=== PATIENT | female | born 1980 | race Caucasian/White ===

== ENCOUNTER → 2016-10-07 | Outpatient (REF) ==
[~2016-10-07] MED LIST: CIPR-249 PO; DEPA250T32 PO; PAXI20TA3 PO; PYRI1TAB5 PO; TRAZ100T2 PO; no meds
== END ==
LOC: M LAB 08:29
PROVIDERS: ATTEND Nurse Practitioner Adult Health
DX: Z02.89 Encounter for other administrative examinations (principal)

== ENCOUNTER 2016-12-16 09:38 | Emergency (ER) | payer OTHER ==
[~2016-12-16] VITALS: Ht 149.9 cm; Wt 76.3 kg
[~2016-12-16 09:38] MED LIST changes: -CIPR-249 PO; -PYRI1TAB5 PO
[2016-12-16] MEDS ORDERED: ONDANSETRON 4 MG ORAL DISINTEGRATING TAB (S0181) PO ONE (10:00)
[2016-12-16] MEDS ORDERED: NORCO, ANEXSIA 5/325MG TABLET (HYDROcodone/ACETAMINOPHEN) PO ONE (10:00)
[2016-12-16] MEDS ORDERED: PHENAZOPYRIDINE 100 MG TAB PO ONE (10:00)
[2016-12-16] MEDS ORDERED: PYRI1TAB5 PO (10:33)
[2016-12-16] MEDS ORDERED: CIPR-249 PO (10:33)
[2016-12-16 10:42] VITALS: BP 132/70
[2016-12-16] MEDS ORDERED: CIPROFLOXACIN 500 MG TAB PO ONE (10:45)
== END 2016-12-16 10:45 | disposition home or self-care (01) ==
LOC: M ED 09:38
DX: N30.90 Cystitis, unspecified without hematuria (principal); J06.9 Acute upper respiratory infection, unspecified; Z88.8 Allergy status to other drugs, medicaments and biological substances; Z91.018 Allergy to other foods

== ENCOUNTER 2017-03-04 11:42 | Emergency (ER) | payer OTHER ==
[~2017-03-04] VITALS: Ht 149.9 cm; Wt 76.0 kg
[~2017-03-04 11:42] MED LIST changes: +CIPR-249 PO; +PYRI1TAB5 PO
[2017-03-04] MEDS ORDERED: IBUP-1022 PO (11:58)
[2017-03-04] MEDS ORDERED: MECLIZINE 25 MG TABLET PO ONE (13:15)
[2017-03-04] MEDS ORDERED: NS 1,000 ML IV ONE (13:15)
[2017-03-04 14:08] LABS: BASO % 0.3 % (0.0-1.0); EOS # 0.2 10^3/uL (0.0-0.50); EOS % 1.7 % (0.0-3.0); IMMATURE GRANULOCYTE % 0.3 % (0-0); LYMPH # 1.4 10^3/uL (1.5-4.5); LYMPH % 13.9 % (24.0-44.0); MEAN CORPUSCULAR HEMOGLOBIN 28.9 pg (27.0-33.0); MEAN CORPUSCULAR HGB CONC 32.8 g/dl (32.0-36.5); MEAN CORPUSCULAR VOLUME 88.2 fl (80.0-96.0); MONO # 0.7 10^3/uL (0.0-0.8); MONO % 6.7 % (0.0-5.0); NEUTROPHILS # 7.6 10^3/uL (1.8-7.7); NEUTROPHILS % 77.1 % (36.0-66.0); PLATELET COUNT, AUTOMATED 352 10^3/uL (150-450); RED CELL DISTRIBUTION WIDTH 12.8 % (11.5-14.5); WHITE BLOOD COUNT 9.9 10^3/uL (4.0-10.0)
[2017-03-04 14:23] LABS: CONTROL LINE HCG INT CTR LINE PRESENT
[2017-03-04 14:26] LABS: ANION GAP 4 MEQ/L (8-16); BLOOD UREA NITROGEN 9 MG/DL (7-18); CALCIUM LEVEL 8.6 MG/DL (8.5-10.1); CARBON DIOXIDE LEVEL 29 MEQ/L (21-32); CHLORIDE LEVEL 107 MEQ/L (98-107); CREATININE FOR GFR 0.44 MG/DL (0.55-1.02); GLOMERULAR FILTRATION RATE > 60.0 (>60); GLUCOSE, FASTING 92 MG/DL (70-105); POTASSIUM SERUM 3.7 MEQ/L (3.5-5.1); SODIUM LEVEL 140 MEQ/L (136-145)
--- NOTE | 2017-03-04 14:45 | REP ---
Clinical: Headache and vertigo . Comparison: 01/26/2015 . Findings: The ventricles, sulci, and cisterns are normal in position and appearance. Gee-white differentiation is maintained. No acute intracranial hemorrhage, mass/mass effect, pathology or trauma/injury. No evidence for acute infarction. No extra-axial fluid collection. Calvarium is intact. Paranasal sinuses and mastoid air cells are clear. Impression: Normal noncontrast head CT. No evidence for acute intracranial pathology or trauma/injury. Signed by Farhan Ng MD 03/04/2017 02:37 P
--- NOTE | 2017-03-04 14:56 | REP ---
Clinical: Near syncope . Comparison: 01/26/2015 . Findings: The mediastinum and cardiac silhouette are stable and within normal limits for portable technique. The lung joe are clear without acute consolidation, effusion, or pneumothorax. Skeletal structures are stable with chronic scoliosis again noted. Impression: No acute cardiopulmonary process appreciated. Signed by Farhan Ng MD 03/04/2017 02:47 P
[2017-03-04] MEDS ORDERED: MECL-68 PO (15:15)
[2017-03-04 15:19] VITALS: BP 111/64
--- NOTE | 2017-03-06 08:32 | ECGEPIP ---
Stationary ECG Study [facility] - ED Test Date: 2017-03-04 Pat Name: MAHIN LANE Department: Room: - Gender: F Communications Advisor: flores : 1980 Requested By: LARRY Ly Order Number: [id number] Reading MD: Diogo Swanson Measurements Intervals Truman Rate: 63 P: 32 ND: 154 QRS: 11 QRSD: 85 T: 23 QT: 416 QTc: 428 Interpretive Statements SINUS RHYTHM BENIGN EARLY REPOLARIZATION SIMILAR TO 01/26/15 Electronically Signed On 03-06-2017 8:31:38 EST by Diogo Swanson
== END 2017-03-04 15:51 | disposition home or self-care (01) ==
LOC: M ED 11:42
DX: R42 Dizziness and giddiness (principal); F31.9 Bipolar disorder, unspecified; Z79.899 Other long term (current) drug therapy; Z91.018 Allergy to other foods

== ENCOUNTER 2017-09-13 20:14 | Inpatient (IN) | payer OTHER ==
[2017-09-13] MEDS ORDERED: NS 1,000 ML IV (22:00)
[2017-09-13] MEDS: MORPHINE 4 MG/ML 1ML VIAL/SYRINGE (J2270) IV (22:15)
[2017-09-13] MEDS: ONDANSETRON 4MG/2ML VIAL (J2405) IV (22:15)
[2017-09-13] MEDS: FAMOTIDINE IV BAG 20 MG in APPROPRIATE DILUENT 1 EA IV (22:20)
[2017-09-13] MEDS: diphenhydrAMINE INJ 50MG/ML VIAL (J1200) IV (22:20)
[2017-09-13] MEDS: NS 1,000 ML IV (22:20)
[2017-09-13 22:31] LABS: HEMATOCRIT 39.5 % (36.0-47.0); MEAN CORPUSCULAR HEMOGLOBIN 28.7 pg (27.0-33.0); MEAN CORPUSCULAR HGB CONC 32.9 g/dl (32.0-36.5); MEAN CORPUSCULAR VOLUME 87.2 fl (80.0-96.0); PLATELET COUNT, AUTOMATED 350 10^3/uL (150-450); RED BLOOD COUNT 4.53 10^6/uL (4.00-5.40); RED CELL DISTRIBUTION WIDTH 13.2 % (11.5-14.5); WHITE BLOOD COUNT 13.5 10^3/uL (4.0-10.0)
[2017-09-13 22:49] LABS: ANION GAP 6 MEQ/L (8-16); BLOOD UREA NITROGEN 8 MG/DL (7-18); CALCIUM LEVEL 8.7 MG/DL (8.5-10.1); CARBON DIOXIDE LEVEL 28 MEQ/L (21-32); CHLORIDE LEVEL 106 MEQ/L (98-107); CREATININE FOR GFR 0.53 MG/DL (0.55-1.30); GLOMERULAR FILTRATION RATE > 60.0 (>60); GLUCOSE, FASTING 97 MG/DL (70-100); POTASSIUM SERUM 3.4 MEQ/L (3.5-5.1); SODIUM LEVEL 140 MEQ/L (136-145)
[2017-09-13] MEDS: methylPREDNISolone 500 MG, VIAL MATE ADAPTER 1 EACH in D5W 250 ML IV (23:08)
[2017-09-13 23:11] LABS: LACTIC ACID SEPSIS PROTOCOL 0.9 MMOL/L (0.4-2.0)
[2017-09-13] MEDS ORDERED: ISOVUE-370 76% 100ML VIAL (Q9967) As Ordered (23:17)
[2017-09-14] MEDS: AMPICILLIN SOD/SULBACTAM SOD 3 GM in D5W MINI-BAG PLUS 100 ML IV ×4 (00:39→20:49)
[2017-09-14] MEDS: NS 1,000 ML IV ×3 (00:51→13:36)
[2017-09-14 07:27] LABS: BASO % 0.2 % (0.0-1.0); HEMATOCRIT 36.2 % (36.0-47.0); HEMOGLOBIN 11.6 g/dl (12.0-15.5); IMMATURE GRANULOCYTE % 0.7 % (0-3.0); LYMPH # 1.1 10^3/uL (1.5-4.5); LYMPH % 10.2 % (24.0-44.0); MEAN CORPUSCULAR HEMOGLOBIN 28.4 pg (27.0-33.0); MEAN CORPUSCULAR VOLUME 88.5 fl (80.0-96.0); MONO # 0.2 10^3/uL (0.0-0.8); MONO % 1.9 % (0.0-5.0); NEUTROPHILS # 9.4 10^3/uL (1.8-7.7); PLATELET COUNT, AUTOMATED 328 10^3/uL (150-450); RED BLOOD COUNT 4.09 10^6/uL (4.00-5.40); RED CELL DISTRIBUTION WIDTH 13.3 % (11.5-14.5); WHITE BLOOD COUNT 10.8 10^3/uL (4.0-10.0)
[2017-09-14 07:45] LABS: INR 1.07
[2017-09-14 08:08] LABS: ANION GAP 7 MEQ/L (8-16); BLOOD UREA NITROGEN 9 MG/DL (7-18); CALCIUM LEVEL 8.3 MG/DL (8.5-10.1); CARBON DIOXIDE LEVEL 27 MEQ/L (21-32); CHLORIDE LEVEL 108 MEQ/L (98-107); CREATININE FOR GFR 0.48 MG/DL (0.55-1.30); GLOMERULAR FILTRATION RATE > 60.0 (>60); GLUCOSE, FASTING 153 MG/DL (70-100); POTASSIUM SERUM 3.6 MEQ/L (3.5-5.1); SODIUM LEVEL 142 MEQ/L (136-145)
[2017-09-14] MEDS: methylPREDNISolone INJ 125 MG/2 ML VIAL (J2930) IV (12:05)
[2017-09-14] MEDS: HEPARIN SOD (PORCINE) 5000 UNITS/ML VIAL SQ ×2 (14:23→20:49)
[2017-09-14] MEDS: CHLORHEXIDINE ORAL RINSE 0.12%/15ML 120ML BOTTLE MT ×2 (14:49→20:49)
[2017-09-15] MEDS: AMPICILLIN SOD/SULBACTAM SOD 3 GM in D5W MINI-BAG PLUS 100 ML IV ×4 (02:31→20:29)
[2017-09-15 07:39] LABS: HEMATOCRIT 30.6 % (36.0-47.0); HEMOGLOBIN 9.9 g/dl (12.0-15.5); MEAN CORPUSCULAR HEMOGLOBIN 28.6 pg (27.0-33.0); MEAN CORPUSCULAR HGB CONC 32.4 g/dl (32.0-36.5); MEAN CORPUSCULAR VOLUME 88.4 fl (80.0-96.0); PLATELET COUNT, AUTOMATED 285 10^3/uL (150-450); RED BLOOD COUNT 3.46 10^6/uL (4.00-5.40); RED CELL DISTRIBUTION WIDTH 13.5 % (11.5-14.5); WHITE BLOOD COUNT 13.1 10^3/uL (4.0-10.0)
[2017-09-15] MEDS ORDERED: ISOVUE-370 76% 100ML VIAL (Q9967) As Ordered (07:51)
[2017-09-15 08:07] LABS: ANION GAP 5 MEQ/L (8-16); BLOOD UREA NITROGEN 13 MG/DL (7-18); C REACTIVE PROTEIN QUANTITATIV 2.79 MG/DL (0.00-0.30); CALCIUM LEVEL 8.2 MG/DL (8.5-10.1); CARBON DIOXIDE LEVEL 26 MEQ/L (21-32); CHLORIDE LEVEL 113 MEQ/L (98-107); CREATININE FOR GFR 0.42 MG/DL (0.55-1.30); GLOMERULAR FILTRATION RATE > 60.0 (>60); GLUCOSE, FASTING 114 MG/DL (70-100); MAGNESIUM LEVEL 1.9 MG/DL (1.8-2.4); POTASSIUM SERUM 3.7 MEQ/L (3.5-5.1); SODIUM LEVEL 144 MEQ/L (136-145)
[2017-09-15 09:45] LABS: CK-MB VALUE MASS 1.3 NG/ML (<3.6); CPK CREATINE PHOSPHOKINASE 27 U/L (26-192); MB/CK RELATIVE INDEX 4.81 (< OR =4)
[2017-09-15] MEDS: HEPARIN SOD (PORCINE) 5000 UNITS/ML VIAL SQ ×2 (09:52→20:30)
[2017-09-15] MEDS: CHLORHEXIDINE ORAL RINSE 0.12%/15ML 120ML BOTTLE MT ×2 (09:53→20:29)
[2017-09-15] MEDS: NS 1,000 ML IV ×2 (10:33→20:42)
[2017-09-15 11:33] LABS: ESTIMATED AVERAGE GLUCOSE 105 MG/DL (60-110); HEMOGLOBIN A1c 5.3 %
[2017-09-15] MEDS: ACETAMINOPHEN TAB 650MG DOSE (2X325MG) PO ×2 (11:34→20:42)
[2017-09-15 14:31] LABS: CK-MB VALUE MASS 1.6 NG/ML (<3.6); CPK CREATINE PHOSPHOKINASE 31 U/L (26-192); MB/CK RELATIVE INDEX 5.16 (< OR =4); TROPONIN I < 0.02 NG/ML (< 0.10)
[2017-09-16] MEDS: AMPICILLIN SOD/SULBACTAM SOD 3 GM in D5W MINI-BAG PLUS 100 ML IV ×3 (02:34→13:50)
[2017-09-16] MEDS: NS 1,000 ML IV (07:04)
[2017-09-16 07:41] LABS: HEMATOCRIT 31.6 % (36.0-47.0); MEAN CORPUSCULAR HEMOGLOBIN 28.4 pg (27.0-33.0); MEAN CORPUSCULAR HGB CONC 31.6 g/dl (32.0-36.5); MEAN CORPUSCULAR VOLUME 89.8 fl (80.0-96.0); PLATELET COUNT, AUTOMATED 282 10^3/uL (150-450); RED BLOOD COUNT 3.52 10^6/uL (4.00-5.40); RED CELL DISTRIBUTION WIDTH 13.5 % (11.5-14.5); WHITE BLOOD COUNT 6.3 10^3/uL (4.0-10.0)
[2017-09-16 07:53] LABS: ANION GAP 3 MEQ/L (8-16); BLOOD UREA NITROGEN 11 MG/DL (7-18); C REACTIVE PROTEIN QUANTITATIV 1.19 MG/DL (0.00-0.30); CALCIUM LEVEL 7.4 MG/DL (8.5-10.1); CARBON DIOXIDE LEVEL 30 MEQ/L (21-32); CHLORIDE LEVEL 110 MEQ/L (98-107); CREATININE FOR GFR 0.42 MG/DL (0.55-1.30); GLOMERULAR FILTRATION RATE > 60.0 (>60); GLUCOSE, FASTING 82 MG/DL (70-100); MAGNESIUM LEVEL 1.5 MG/DL (1.8-2.4); POTASSIUM SERUM 3.1 MEQ/L (3.5-5.1); SODIUM LEVEL 143 MEQ/L (136-145)
[2017-09-16] MEDS: CHLORHEXIDINE ORAL RINSE 0.12%/15ML 120ML BOTTLE MT (08:36)
[2017-09-16] MEDS: HEPARIN SOD (PORCINE) 5000 UNITS/ML VIAL SQ (08:37)
[2017-09-16] MEDS: POTASSIUM CHLORIDE 10 MEQ SR TABLET PO ×2 (11:18→15:22)
[2017-09-16] MEDS: MAG SULF 1GM/100ML (MAG RUN) 1 GM in APPROPRIATE DILUENT 1 EA IV (11:19)
== END 2017-09-16 15:38 | disposition home or self-care (01) | DRG 153 ==
LOC: M ED INP 09-14 00:51 → M MSPAV 09-15 12:30 → M PED 09-15 12:40 → M ED 20:14 → M PED 09-14 03:10
DX: J39.1 Other abscess of pharynx (principal); K12.2 Cellulitis and abscess of mouth; F31.9 Bipolar disorder, unspecified; R59.0 Localized enlarged lymph nodes; R73.9 Hyperglycemia, unspecified; J03.91 Acute recurrent tonsillitis, unspecified; T38.0X5A Adverse effect of glucocorticoids and synthetic analogues, initial encounter

== ENCOUNTER → 2017-09-27 | Outpatient (REF) | payer OTHER ==
[2017-09-27 17:46] LABS: FERRITIN 46 NG/ML (8-252); IRON (FE) 63 UG/DL (50-170); PERCENT SATURATION 20.5 % (13.2-45.0); TOTAL IRON BINDING CAPACITY 307 UG/DL (250-450)
[2017-09-27 17:51] LABS: VITAMIN B12 LEVEL 406 PG/ML (247-911)
[2017-09-27 17:52] LABS: FOLATE 9.8 NG/ML (>5.4)
== END ==
LOC: M SFHCLERA 12:17
DX: D64.9 Anemia, unspecified (principal)

== ENCOUNTER 2017-10-05 23:13 | Emergency (ER) | payer OTHER ==
[2017-10-05] MEDS: NORCO 5/325MG TABLET (BULK FOR ED) PO (23:39)
[2017-10-05] MEDS: CLINDAMYCIN 150 MG CAP PO (23:39)
== END 2017-10-05 23:51 | disposition home or self-care (01) ==
LOC: M ED 23:13
DX: K04.7 Periapical abscess without sinus (principal); R68.84 Jaw pain; K08.89 Other specified disorders of teeth and supporting structures; Z79.899 Other long term (current) drug therapy; Z88.8 Allergy status to other drugs, medicaments and biological substances; Z91.018 Allergy to other foods
CPT/HCPCS: 99283

== ENCOUNTER 2017-10-09 23:10 | Emergency (ER) | payer OTHER ==
[2017-10-10] MEDS ORDERED: LIDOCAINE W/EPINEPHRINE 1% 20ML VIAL As Ordered (00:27)
[2017-10-10] MEDS: LIDOCAINE W/EPINEPHRINE 1% 20ML VIAL SC (00:30)
[2017-10-10] MEDS: NORCO 5/325MG TABLET (BULK FOR ED) PO (01:00)
== END 2017-10-10 01:04 | disposition home or self-care (01) ==
LOC: M ED 23:10
DX: K08.89 Other specified disorders of teeth and supporting structures (principal); Z79.899 Other long term (current) drug therapy; Z88.8 Allergy status to other drugs, medicaments and biological substances; Z91.018 Allergy to other foods
CPT/HCPCS: 99283

== ENCOUNTER 2018-06-28 18:17 | Emergency (ER) | payer MEDICAID, OTHER ==
[~2018-06-28] VITALS: Ht 149.9 cm; Wt 81.3 kg
[2018-06-28 18:17] VITALS: BP 137/63
[~2018-06-28 18:17] MED LIST changes: +ACET1TAB16 PO; +ACET30TAB PO; +ANBE20GE TOP; +AUGM875T28 PO; +CLEO300C2 PO; +ESCI10TA2 PO; +IBUP-1022 PO; +IBUP1TAB7 PO; +MECL-68 PO; +NORCOTAB PO; +OMEP40CA2 PO; +PENI250T57 PO; +PERI12LIQ MT; +[UNRECOGNIZED DRUG - OTHER] SSP
[2018-06-28] MEDS ORDERED: ALEV220C2 PO (18:23)
[2018-06-28] MEDS ORDERED: ACET30TAB PO (20:38)
[2018-06-28] MEDS ORDERED: KETO10TAB PO (20:38)
[2018-06-28] MEDS ORDERED: CLEO300C2 PO (20:38)
[2018-06-28] MEDS ORDERED: KETOROLAC TROMETHAMINE 10 MG TAB PO ONE (20:45)
[2018-06-28] MEDS ORDERED: CLINDAMYCIN 150 MG CAP PO ONE (20:45)
[2018-06-28] MEDS ORDERED: ACETAMINOPH W/CODEINE #3 TAB UD PO ONE (20:45)
== END 2018-06-28 20:52 | disposition home or self-care (01) ==
LOC: M ED 18:17
DX: L03.113 Cellulitis of right upper limb (principal); L81.8 Other specified disorders of pigmentation; Z88.8 Allergy status to other drugs, medicaments and biological substances; Z88.1 Allergy status to other antibiotic agents; Z91.018 Allergy to other foods

== ENCOUNTER 2018-08-06 07:07 | Emergency (ER) | payer OTHER ==
[~2018-08-06] VITALS: Ht 149.9 cm; Wt 78.2 kg
[~2018-08-06 07:07] MED LIST changes: +ACET-716 PO; -ACET30TAB PO; +ALEV220C2 PO; +HYDR-3715 PO; +KETO10TAB PO; -NORCOTAB PO
[2018-08-06] MEDS ORDERED: CYCLOBENZAPRINE 10 MG TAB PO ONE (07:30)
[2018-08-06] MEDS ORDERED: KETOROLAC 60 MG/2 ML VIAL (J1885) IM ONE (07:30)
[2018-08-06] MEDS ORDERED: methylPREDNISolone INJ 125 MG/2 ML VIAL (J2930) IM ONE (07:30)
[2018-08-06] MEDS ORDERED: PERCOCET 5MG/325MG TAB PO ONE (08:15)
[2018-08-06] MEDS ORDERED: NAPR500T6 PO (08:54)
[2018-08-06] MEDS ORDERED: PRED20TA PO (08:54)
[2018-08-06] MEDS ORDERED: ROBA500T PO (08:54)
[2018-08-06 09:09] VITALS: BP 101/59
== END 2018-08-06 09:15 | disposition home or self-care (01) ==
LOC: M ED 07:07
DX: M54.30 Sciatica, unspecified side (principal); F32.9 Major depressive disorder, single episode, unspecified; Z91.018 Allergy to other foods; Z88.6 Allergy status to analgesic agent; Z88.1 Allergy status to other antibiotic agents
CPT/HCPCS: 96372; 99283; J1885; J2930

== ENCOUNTER → 2018-08-10 | Outpatient (CLI) | payer OTHER, MEDICAID ==
[~2018-08-10] MED LIST changes: +NAPR500T6 PO; +PRED20TA PO; +ROBA500T PO
--- NOTE | 2018-08-10 15:46 | REP ---
LUMBAR SPINE, SIX VIEWS: HISTORY: Back pain. There is no acute fracture or subluxation. The L3-4 and L4-5 intervertebral discs are decreased in height consistent with disc degeneration. The facet joints are normal in appearance. There is scoliosis of the thoracolumbar spine convex to the left. IMPRESSION: Degenerative change as described above. Electronically Signed by Ruslan Knox MD 08/10/2018 03:51 P
== END ==
LOC: M LRY 14:06
PROVIDERS: ATTEND Nurse Practitioner Family
DX: M51.36 Other intervertebral disc degeneration, lumbar region (principal)

== ENCOUNTER → 2018-08-10 | Outpatient (REF) | payer OTHER, MEDICAID ==
[2018-08-10 18:21] LABS: BASO % 0.4 % (0.0-1.0); EOS # 0.4 10^3/uL (0.0-0.50); EOS % 3.9 % (0.0-3.0); HEMATOCRIT 41.3 % (36.0-47.0); LYMPH # 3.5 10^3/uL (1.5-4.5); LYMPH % 35.9 % (24.0-44.0); MEAN CORPUSCULAR HEMOGLOBIN 27.9 pg (27.0-33.0); MEAN CORPUSCULAR HGB CONC 31.5 g/dl (32.0-36.5); MEAN CORPUSCULAR VOLUME 88.6 fl (80.0-96.0); MONO # 0.8 10^3/uL (0.0-0.8); MONO % 8.1 % (0.0-5.0); NEUTROPHILS % 51.4 % (36.0-66.0); PLATELET COUNT, AUTOMATED 386 10^3/uL (150-450); RED BLOOD COUNT 4.66 10^6/uL (4.00-5.40); WHITE BLOOD COUNT 9.8 10^3/uL (4.0-10.0)
[2018-08-10 18:34] LABS: ALBUMIN 3.6 GM/DL (3.2-5.2); ALT/SGPT 34 U/L (12-78); BILIRUBIN,TOTAL 0.6 MG/DL (0.2-1.0); BLOOD UREA NITROGEN 12 MG/DL (7-18); CALCIUM LEVEL 8.4 MG/DL (8.5-10.1); CARBON DIOXIDE LEVEL 27 MEQ/L (21-32); CHLORIDE LEVEL 107 MEQ/L (98-107); CHOLESTEROL LEVEL 143 MG/DL (<200); CHOLESTEROL RISK RATIO 4.085 (<5); CREATININE FOR GFR 0.51 MG/DL (0.55-1.30); GLOMERULAR FILTRATION RATE > 60.0 (>60); GLUCOSE, FASTING 94 MG/DL (70-100); HDL CHOLESTEROL 35 MG/DL (>40); LDL CHOLESTEROL 74 MG/DL (<100); NON-HDL-C 108 MG/DL; POTASSIUM SERUM 3.8 MEQ/L (3.5-5.1); SODIUM LEVEL 139 MEQ/L (136-145); THYROID STIMULATING HORMONE 0.851 uIU/ML (0.358-3.740); TOTAL PROTEIN 7.3 GM/DL (6.4-8.2); TRIGLYCERIDES LEVEL 169 MG/DL (<150)
== END ==
LOC: M SFHCLERA 14:01
PROVIDERS: ATTEND Nurse Practitioner Family
DX: Z13.220 Encounter for screening for lipoid disorders (principal); R53.82 Chronic fatigue, unspecified

== ENCOUNTER → 2018-09-14 | Outpatient (CLI) | payer OTHER ==
--- NOTE | 2018-09-17 18:13 | SLEEPHOME ---
DATE OF PROCEDURE: 09/14/2018 ORDERED BY: HANS Ledezma Diagnostic home sleep testing was performed due to concern for the obstructive sleep apnea syndrome. For testing a nocturnal T3 respiratory monitoring device was used. Continuous record was made of pulse, oxygen saturation, airflow, chest, abdominal strain and body position. 10 hours and 59 minutes of data were reviewed. There were 5 hours and 58 minutes marked as time in bed. During the interval marked time in bed, there were 37 respiratory events identified of 10 seconds in duration or greater for a respiratory event index of 6.2. The events were primarily obstructive, not exclusive to specific posture. Baseline pulse rate 65 beats per minute, pulse rate ranged 34-100. Baseline saturation 93%, saturations fell to 75% with an oxygen desaturation index of 5.9. Testing was performed in both the supine and nonsupine positions. IMPRESSION: Abnormal home sleep testing with repetitive respiratory events and oxygen desaturations to 75% with a respiratory event index of 6.2 is consistent with the obstructive sleep apnea syndrome. RECOMMENDATIONS: The patient should be encouraged to undergo a formal sleep evaluation and in laboratory pressure titration.
== END ==
LOC: M SLEEP HO 09:13
PROVIDERS: ATTEND Nurse Practitioner Family
DX: R06.83 Snoring (principal)

== ENCOUNTER 2018-12-15 07:51 | Inpatient (IN) | payer MEDICAID, OTHER ==
[~2018-12-15] VITALS: Ht 147.3 cm; Wt 84.0 kg
[~2018-12-15 07:51] MED LIST changes: -MECL-68 PO; +MECL1TAB31 PO; -OMEP40CA2 PO; +OMEP40CA97 PO
[2018-12-15] MEDS ORDERED: NAPR-885 PO (07:57)
[2018-12-15] MEDS ORDERED: PENI500T PO (07:57)
[2018-12-15] MEDS ORDERED: AMPICILLIN SOD/SULBACTAM SOD 3 GM in D5W MINI-BAG PLUS 100 ML IV ONE (08:15)
[2018-12-15] MEDS ORDERED: KETOROLAC 30 MG/ML VIAL (J1885) IV ONE (08:15)
[2018-12-15 08:42] LABS: BASO % 0.3 % (0.0-1.0); EOS # 0.1 10^3/uL (0.0-0.5); HEMATOCRIT 37.5 % (36.0-47.0); HEMOGLOBIN 12.2 g/dl (12.0-15.5); LYMPH # 1.9 10^3/uL (1.5-5.0); LYMPH % 19.1 % (24.0-44.0); MEAN CORPUSCULAR HEMOGLOBIN 29.3 pg (27.0-33.0); MEAN CORPUSCULAR HGB CONC 32.5 g/dl (32.0-36.5); MEAN CORPUSCULAR VOLUME 90.1 fl (80.0-96.0); MONO # 1.2 10^3/uL (0.0-0.8); MONO % 11.8 % (0.0-5.0); NEUTROPHILS # 6.7 10^3/uL (1.5-8.5); NEUTROPHILS % 67.5 % (36.0-66.0); PLATELET COUNT, AUTOMATED 284 10^3/uL (150-450); RED BLOOD COUNT 4.16 10^6/uL (4.00-5.40); WHITE BLOOD COUNT 9.9 10^3/uL (4.0-10.0)
[2018-12-15] MEDS ORDERED: ISOVUE-370 76% 100ML VIAL (Q9967) As Ordered ONE (08:59)
[2018-12-15 09:27] LABS: ERYTHROCYTE SEDIMENTATION RATE 30 mm/hr (0-20)
--- NOTE | 2018-12-15 09:39 | REP ---
Clinical: Facial swelling. Technique: Axial contrast enhanced images from the skull base to the thoracic inlet with coronal and sagittal re-formations using 100 ml Isovue 370 intravenous contrast material. Findings: Extensive right-sided facial swelling extending from approximately the level of the zygomatic arch to the submandibular region with significant inflammatory stranding and phlegmonous changes primarily overlying the mandible. There is partial opacification to the ethmoid and maxillary sinuses suggesting the possibility of associated sinusitis. The bilateral orbits including globes and intraconal contents as well as the oral pharyngeal, parapharyngeal, retropharyngeal soft tissues and spaces appear relatively normal. The airway remains patent and midline. The bilateral parotid, submandibular and submental glands appear relatively symmetric and normal. Mild right-sided cervical and jugular chain adenopathy noted. Vasculature is symmetric and normal. The osseous structures are intact and without obvious osseous pathology. Impression: 1. Extensive right-sided facial swelling primarily overlying the maxilla and mandible with significant inflammatory stranding and phlegmonous changes. Forming abscess cannot be excluded and may warrant followup. Findings remain relatively superficial and no parapharyngeal/retropharyngeal or oral pharyngeal mass/mass effect, gauge swelling or process is appreciated. Electronically Signed by Farhan Ng MD 12/15/2018 09:31 A
[2018-12-15] MEDS ORDERED: MCTOIL PO (10:50)
[2018-12-15] MEDS ORDERED: CVS1CAP2 PO (10:50)
[2018-12-15] MEDS ORDERED: MULTCAP PO (10:50)
[2018-12-15] MEDS: NS 1,000 ML IV SCH (11:36)
--- NOTE | 2018-12-15 12:25 | REP ---
Clinical: Facial swelling. Technique: Two Panorex views. Findings: Mandible, osseous structures, and dentition appear relatively normal and without obvious acute process. There is a lucency surrounding the root of the presumed lower right second pre molar tooth. No associated extension through the mandible is appreciated. Impression: As above. Electronically Signed by Farhan Ng MD 12/15/2018 12:17 P
[2018-12-15 13:05] VITALS: BP 140/65
[2018-12-15] MEDS ORDERED: MORPHINE 4 MG/ML 1ML VIAL/SYRINGE (J2270) IV ONE (13:45)
[2018-12-15] MEDS ORDERED: NALOXONE INJ 0.4 MG/1 ML VIAL (J2310) IV PRN (13:45)
[2018-12-15] MEDS ORDERED: oxyCODONE 10 MG CR TAB PO ONE (14:30)
[2018-12-15] MEDS: AMPICILLIN SOD/SULBACTAM SOD 3 GM in D5W MINI-BAG PLUS 100 ML IV SCH ×2 (15:02→21:14)
[2018-12-15] MEDS: KETOROLAC 30 MG/ML VIAL (J1885) IV SCH ×2 (15:02→21:13)
[2018-12-15] MEDS: oxyCODONE 5MG TAB PO PRN ×2 (15:14→21:14)
[2018-12-15] MEDS: CHLORHEXIDINE GLUCONATE 0.12 % 15ML UDC (PERIDEX ORAL RINSE) MT SCH ×2 (16:34→21:13)
[2018-12-15] MEDS ORDERED: oxyCODONE 5MG TAB PO ONE (17:00)
[2018-12-15] MEDS ORDERED: ACETAMINOPHEN 500 MG TAB PO ONE (17:00)
[2018-12-15] MEDS: ONDANSETRON 4MG/2ML VIAL (J2405) IV PRN (18:40)
[2018-12-15 20:00] VITALS: BP 99/53; O2SAT 97
[2018-12-15 21:00] VITALS: O2SAT 97
[2018-12-15] MEDS ORDERED: oxyCODONE 10 MG CR TAB PO SCH (21:00)
[2018-12-15 22:00] VITALS: O2SAT 95
[2018-12-15 23:00] VITALS: O2SAT 92
[2018-12-16] VITALS (15 sets, daily range): BP systolic 98–121; BP diastolic 52–83; O2SAT 93–98
[2018-12-16] MEDS: NS 1,000 ML IV SCH ×2 (01:09→13:47)
[2018-12-16] MEDS: ONDANSETRON 4MG/2ML VIAL (J2405) IV PRN (01:09)
[2018-12-16] MEDS: KETOROLAC 30 MG/ML VIAL (J1885) IV SCH ×4 (03:53→20:25)
[2018-12-16] MEDS: oxyCODONE 5MG TAB PO PRN ×3 (03:54→17:49)
[2018-12-16] MEDS: AMPICILLIN SOD/SULBACTAM SOD 3 GM in D5W MINI-BAG PLUS 100 ML IV SCH ×4 (03:54→20:26)
[2018-12-16 06:48] LABS: BASO % 0.3 % (0.0-1.0); EOS # 0.3 10^3/uL (0.0-0.5); EOS % 2.9 % (0.0-3.0); HEMATOCRIT 36.8 % (36.0-47.0); HEMOGLOBIN 11.8 g/dl (12.0-15.5); LYMPH # 2.7 10^3/uL (1.5-5.0); LYMPH % 29.7 % (24.0-44.0); MEAN CORPUSCULAR HEMOGLOBIN 29.6 pg (27.0-33.0); MEAN CORPUSCULAR HGB CONC 32.1 g/dl (32.0-36.5); MEAN CORPUSCULAR VOLUME 92.5 fl (80.0-96.0); MONO # 0.9 10^3/uL (0.0-0.8); MONO % 10.3 % (0.0-5.0); NEUTROPHILS # 5.1 10^3/uL (1.5-8.5); NEUTROPHILS % 56.6 % (36.0-66.0); PLATELET COUNT, AUTOMATED 279 10^3/uL (150-450); RED BLOOD COUNT 3.98 10^6/uL (4.00-5.40); WHITE BLOOD COUNT 9.1 10^3/uL (4.0-10.0)
[2018-12-16 07:11] LABS: BLOOD UREA NITROGEN 7 MG/DL (7-18); CALCIUM LEVEL 7.9 MG/DL (8.5-10.1); CARBON DIOXIDE LEVEL 31 MEQ/L (21-32); CHLORIDE LEVEL 105 MEQ/L (98-107); CREATININE FOR GFR 0.48 MG/DL (0.55-1.30); GLOMERULAR FILTRATION RATE > 60.0 (>60); GLUCOSE, FASTING 84 MG/DL (70-100); POTASSIUM SERUM 3.6 MEQ/L (3.5-5.1); SODIUM LEVEL 142 MEQ/L (136-145)
[2018-12-16] MEDS ORDERED: MEPIVACAINE HCL 3 % 1.7 ML DENTAL CARTRIDGE (CARBOCAINE) (J0670) As Ordered ONE (07:46)
[2018-12-16] MEDS ORDERED: LIDOCAINE 2% W/ EPINEPHRINE 1.7 ML DENTAL INJ As Ordered ONE ×2 (07:47→07:48)
[2018-12-16] MEDS ORDERED: ROCURONIUM BROMIDE 50 MG/5 ML VIAL As Ordered ONE (08:41)
[2018-12-16] MEDS ORDERED: MIDAZOLAM INJ 2 MG/2 ML VIAL (J2250) As Ordered ONE (08:41)
[2018-12-16] MEDS ORDERED: PHENYLephrine HCL 500 MCG/5 ML (100MCG/ML) SYRINGE (J2370) As Ordered ONE (08:41)
[2018-12-16] MEDS ORDERED: fentaNYL 250 MCG/5 ML INJECTION (J3010) As Ordered ONE (08:41)
[2018-12-16] MEDS ORDERED: ONDANSETRON 4MG/2ML VIAL (J2405) As Ordered ONE (08:41)
[2018-12-16] MEDS ORDERED: LIDOCAINE 2% INJ 100 MG/5 ML SDV (FOR ANES.) As Ordered ONE (08:41)
[2018-12-16] MEDS ORDERED: propofoL 200 MG/20 ML VIAL As Ordered ONE (08:41)
[2018-12-16] MEDS ORDERED: dexameTHASONE 4 MG/ML 1ML VIAL (J1100) As Ordered ONE (08:41)
[2018-12-16] MEDS ORDERED: SUGAMMADEX SODIUM 500 MG/5 ML VIAL (BRIDION) As Ordered ONE (08:41)
[2018-12-16] MEDS: CHLORHEXIDINE GLUCONATE 0.12 % 15ML UDC (PERIDEX ORAL RINSE) MT SCH ×2 (09:00→20:26)
[2018-12-16] MEDS ORDERED: PERCOCET 5MG/325MG TAB PO PRN (09:45)
[2018-12-16] MEDS ORDERED: fentaNYL 100 MCG/2 ML INJECTION (J3010) IV PRN (09:45)
[2018-12-16] MEDS ORDERED: MEPERIDINE INJ 25 MG/ML VIAL (J2175) IV PRN (09:45)
[2018-12-16] MEDS ORDERED: METOCLOPRAMIDE INJ 10MG/2ML VIAL (J2765) IV PRN (09:45)
[2018-12-16] MEDS ORDERED: ONDANSETRON 4MG/2ML VIAL (J2405) IV PRN (09:45)
[2018-12-16] MEDS ORDERED: LR 1,000 ML IV SCH (09:45)
--- NOTE | 2018-12-16 15:57 | IPNPDOC ---
Date Seen The patient was seen on 12/16/18. Progress Note SUBJECTIVE: s/p 2 teeth extraction right premolar 8/10 pain on pain scale, afebrile no chills still with significant edema, tenderness right face. OBJECTIVE: PHYSICAL EXAMINATION: VITALS: pls see below HEENT: no respiratory distress or conversational dyspnea. trismus with difficulty opening her mouth with extensive right mandibular, facial edema tenderness with significant right cervical LAD. no stridor Lungs; CTAB AEBE no wheezing or rales Heart: S1S2 RRR Abd: S1S2 obese soft NT ND no HSM Ext: no edema, cyanosis, clubbing. LABORATORY DATA IMAGING STUDIES, MICROBIOLOGY; PLS SEE BELOW ASSESSMENT AND PLAN: 38 F presented with 2day h/o subjective fevers, chills, after cracking her premolar tooth, seen at urgent care given pcn with worsening tenderness swelling prompting her to come to the ER Right facial cellulitis due to teeth abscess s/p tooth extraction by OMFS Dr. Bhagat on liquid diet, ivfluids, iv toradol, iv unasyn Obesity BMI 38.7 at risk for hypercapnia due to opioid ALEJANDRINA protocol continuous pulse ox. disposition: pending clinical improvement . 2-3 days. VS, I&O, 24H, Fishbone Vital Signs/I&O Vital Signs Date Time Temp Pulse Resp B/P (MAP) Pulse Ox O2 Delivery O2 Flow Rate FiO2 12/16/18 13:46 85 17 121/65 (83) 96 1.0 12/16/18 10:42 97.8 12/16/18 07:50 Room Air I&O- Last 24 Hours up to 6 AM 12/16/18 06:00 Intake Total 2925 ml Output Total 1400 ml Balance 1525 ml Laboratory Data 24H LABS Laboratory Tests 2 12/16/18 06:35: Immature Granulocyte % (Auto) 0.2, White Blood Count 9.1, Red Blood Count 3.98L, Hemoglobin 11.8L, Hematocrit 36.8, Mean Corpuscular Volume 92.5, Mean Corpuscular Hemoglobin 29.6, Mean Corpuscular Hemoglobin Concent 32.1, Red Cell Distribution Width 14.4, Platelet Count 279, Neutrophils (%) (Auto) 56.6, Lymphocytes (%) (Auto) 29.7, Monocytes (%) (Auto) 10.3H, Eosinophils (%) (Auto) 2.9, Basophils (%) (Auto) 0.3, Neutrophils # (Auto) 5.1, Lymphocytes # (Auto) 2.7, Monocytes # (Auto) 0.9H, Eosinophils # (Auto) 0.3, Basophils # (Auto) 0.0, Nucleated Red Blood Cells % (auto) 0.0, Anion Gap 6L, Glomerular Filtration Rate > 60.0, Blood Urea Nitrogen 7, Creatinine 0.48L, Sodium Level 142, Potassium Level 3.6, Chloride Level 105, Carbon Dioxide Level 31, Calcium Level 7.9L CBC/BMP Laboratory Tests 12/16/18 06:35 Red Blood Count 3.98 L, Mean Corpuscular Volume 92.5, Mean Corpuscular Hemoglobin 29.6, Mean Corpuscular Hemoglobin Concent 32.1, Red Cell Distribution Width 14.4, Neutrophils (%) (Auto) 56.6, Lymphocytes (%) (Auto) 29.7, Monocytes (%) (Auto) 10.3 H, Eosinophils (%) (Auto) 2.9, Basophils (%) (Auto) 0.3, Neutrophils # (Auto) 5.1, Lymphocytes # (Auto) 2.7, Monocytes # (Auto) 0.9 H, Eosinophils # (Auto) 0.3, Basophils # (Auto) 0.0, Calcium Level 7.9 L Microbiology Microbiology 12/15/18 Blood Culture - Preliminary, Resulted No growth after 24 hours . All specim... 12/15/18 Blood Culture - Preliminary, Resulted No growth after 24 hours . All specim... INGRID BIGGS MD Dec 16, 2018 15:56
[2018-12-16] MEDS ORDERED: MOM 30ML SUSPENSION UDC PO PRN (16:00)
[2018-12-16] MEDS ORDERED: BISACODYL 10 MG SUPP PR PRN (16:00)
[2018-12-16] MEDS ORDERED: SENOKOT S TAB PO PRN (16:00)
[2018-12-16] MEDS ORDERED: FLEET ENEMA PR PRN (16:00)
[2018-12-17] MEDS: oxyCODONE 5MG TAB PO PRN ×2 (00:43→08:00)
[2018-12-17 02:00] VITALS: BP 123/65
[2018-12-17] MEDS: AMPICILLIN SOD/SULBACTAM SOD 3 GM in D5W MINI-BAG PLUS 100 ML IV SCH ×2 (03:26→07:59)
[2018-12-17] MEDS: KETOROLAC 30 MG/ML VIAL (J1885) IV SCH ×2 (03:27→07:58)
[2018-12-17] MEDS: NS 1,000 ML IV SCH (03:27)
[2018-12-17 05:40] LABS: BASO % 0.1 % (0.0-1.0); EOS % 0.1 % (0.0-3.0); HEMATOCRIT 30.5 % (36.0-47.0); LYMPH # 1.8 10^3/uL (1.5-5.0); LYMPH % 25.1 % (24.0-44.0); MEAN CORPUSCULAR HEMOGLOBIN 29.1 pg (27.0-33.0); MEAN CORPUSCULAR HGB CONC 31.8 g/dl (32.0-36.5); MEAN CORPUSCULAR VOLUME 91.6 fl (80.0-96.0); MONO # 0.5 10^3/uL (0.0-0.8); MONO % 7.3 % (0.0-5.0); NEUTROPHILS # 4.9 10^3/uL (1.5-8.5); PLATELET COUNT, AUTOMATED 256 10^3/uL (150-450); RED BLOOD COUNT 3.33 10^6/uL (4.00-5.40); WHITE BLOOD COUNT 7.3 10^3/uL (4.0-10.0)
[2018-12-17 05:43] LABS: HEMOGLOBIN 9.7 g/dl (12.0-15.5)
[2018-12-17 06:00] VITALS: BP 112/58
[2018-12-17 06:09] LABS: BLOOD UREA NITROGEN 7 MG/DL (7-18); CALCIUM LEVEL 8.1 MG/DL (8.5-10.1); CARBON DIOXIDE LEVEL 28 MEQ/L (21-32); CHLORIDE LEVEL 110 MEQ/L (98-107); GLOMERULAR FILTRATION RATE > 60.0 (>60); GLUCOSE, FASTING 100 MG/DL (70-100); POTASSIUM SERUM 3.6 MEQ/L (3.5-5.1); SODIUM LEVEL 143 MEQ/L (136-145)
--- NOTE | 2018-12-17 07:37 | RO ---
DATE OF PROCEDURE: 12/16/2018 . ADMISSION DIAGNOSIS: Right facial swelling. PREOPERATIVE DIAGNOSIS: Right buccal space abscess and grossly decayed teeth number 29 and 30. POSTOPERATIVE DIAGNOSIS: Status post Right buccal space abscess and grossly decayed teeth number 29 and 30. PROCEDURE PERFORMED: Incision and drainage right buccal space abscess as well as extraction of teeth 29, 30. SURGEON: Dr. Laurent Bhagat DMD. ANESTHESIA: General endotracheal anesthesia via oral ELDER. INDICATIONS FOR SURGERY: Chi is a pleasant 38-year-old female who presented to the emergency room yesterday complaining of acute facial swelling right side of face and toothache teeth number 29 and 30. Clinical examination reveals severe right facial swelling in the right anterior cheek area that is soft and non-indurated with no erythema maxilla or sagittal opening of 45 mm, necrotic teeth and grossly decayed teeth number 29 and 30. Right posterior lower vestibule is full and edematous with tenderness to palpation. CT scan was performed with contrast of the neck that does not show any fluid collection but show swelling and fat stranding in the right buccal space area. Panorex x-ray was performed and shows gross caries #29 with periapical radiolucency as well as involvement of the mesial root of tooth number 30 with a small periapical radiolucency and widened periodontal ligament (PDL). Proposed treatment is to the patient undergo general anesthesia with an incision and drainage of the abscess as well as extraction of teeth numbers 29 and 30. All the risks, benefits and alternatives were explained to the patient, history and physical was performed an informed consent was obtained and is in the patient's chart. DESCRIPTION OF PROCEDURE: The patient was taken back to the operating room, any last minute questions were addressed. She was laid supine on the operating room table. Ulnar nerve protectors were placed. Noninvasive cardiac monitors were applied. At that point the patient underwent general anesthesia was intubated via oral ELDER. She was then prepped and draped in usual sterile fashion. A time-out procedure was performed to identify the patient procedure and any other precautions. Preoperative antibiotics were administered as well as Decadron. A moist throat pack was inserted in the patient's oropharynx followed by the administration of four carpules of 2% lidocaine 1:100,000 epinephrine as local infiltration and blocks . Full-thickness flap was raised distal of #31 extending to the sulcus of 31, 30, 29, 28 and 27. The flap was fully dissected subperiosteally all the way down to the inferior border of the mandible taking care not to injure the mental nerve which was noted and was fully intact. An abundant amount of purulence was noted and evacuated from the subperiosteal area as well as an abundant amount of necrotic tissue and granulation tissue which was all evacuated. At this point tooth #29 was routinely extracted with forceps. A small amount of buccal bone was removed from sites #29/30 and a cowhorn forceps was applied. Tooth was luxated and delivered. The apices and root defects of the two teeth were curetted and irrigated. Small alveoloplasty was performed to remove any sharp bony areas. Copious irrigation was to follow and the flaps were closed with #3-0 chromic sutures. At this point the oral cavity was irrigated and suctioned the throat pack was removed. The patient was awakened from general anesthesia and taken back to the postanesthesia care unit (PACU). COMPLICATIONS: None to mention at the time of surgery. ESTIMATED BLOOD LOSS: 10 mL. DRAINS: There were no drains placed. MTDD
[2018-12-17] MEDS: CHLORHEXIDINE GLUCONATE 0.12 % 15ML UDC (PERIDEX ORAL RINSE) MT SCH (07:57)
--- NOTE | 2018-12-17 09:32 | NOCOX ---
DATE OF PROCEDURE: 12/15/2018 INTERPRETATION: Recording nocturnal oximetry was done on room air. A total of 7 hours and 5 minutes of data was reviewed. Mean oxygen saturation for the study was 95%. Oxygen saturation rangel appears to be 85%. The report was 72% but that is clearly artifact. She spent 99% of the night with saturations greater than 90th percentile. There were fluctuations in the SpO2 waveform that may be suggestive of sleep disordered breathing. IMPRESSION: 1. Acceptable oxygenation on room air. 2. Periods of fluctuation in the SpO2 waveform the may be suggestive of sleep disordered breathing. Clinical correlation needed. RACHANA
[2018-12-17] MEDS ORDERED: AUGM875T28 PO (09:59)
[2018-12-17] MEDS ORDERED: OXYCO5TA PO (10:53)
[2018-12-17] MEDS ORDERED: SENO8.6T10 PO (10:55)
[2018-12-17] MEDS ORDERED: ONDA4TAB6 PO (10:55)
--- NOTE | 2018-12-17 12:44 | HPE ---
DATE OF ADMISSION: 12/15/2018 CHIEF COMPLAINT: Tooth pain. HISTORY OF PRESENT ILLNESS: A 38-year-old female presented to the emergency room with 2 day history of increasing pain and swelling of the right lower face. Patient cracked a tooth on the right mandible about two days ago, ignored it, then developed a sore around the left lower face, which worsened over the past 24 hours. Patient was seen at urgent care, was given penicillin, and at 6:00 p.m., patient had increasing swelling, redness and pain into the evening, prompting her to come this morning. She denies any shortness of breath or hoarseness of the voice this morning. She is unable to swallow and open her mouth fully due to significant pain, swelling and redness. Last meal was yesterday around lunchtime and has been unable to eat since then. Patient has been having some subjective fevers and chills at home. She had taken Aleve 375 mg about four times a day that she also takes for her neck and back pain. She had a similar episode when she had wisdom teeth out about a year ago when she developed inflammation, redness and swelling of the face due to infection. PAST MEDICAL HISTORY: 1. Chronic neck and back pain. 2. Devine teeth were extracted. PAST SURGICAL HISTORY: 1. (C) section. 2. Tubal ligation. 3. Devine teeth extraction. ALLERGIES: PEARS and FLAGYL, causing anaphylaxis. HOME MEDICATIONS: - penicillin G - Aleve as needed - Naprosyn 500 mg twice a day - Pen-V-K 500 mg four times a day SOCIAL HISTORY: Previously smoked vape years ago, smoked one pack a week. Previously 1-2 beers a week. She has three children. Works at [employer]. FAMILY HISTORY: Mother age 59 complications of diabetes, hypertension and obesity. Father alive age 55, diabetes, hypertension. She has a 17-year-old daughter and two sons, age 12 and 14. She is a [employer]. REVIEW OF SYSTEMS: Per history of present illness (HPI). A 12 point system otherwise negative. PHYSICAL EXAMINATION: Temperature 99.6, pulse 119, sinus rhythm, respiratory rate 16, blood pressure 136/79, 96% on room air. GENERAL: Patient is awake, alert, oriented times three. She has difficulty speaking due to severe swelling of the right face and mandible with trismus Unable to place three fingers in the mouth due to severe pain and swelling. Patient has no stridor on examination. She has significant erythema that encompasses most of the right cheek, mandible, with positive cervical lymphadenopathy on the right. No stridor on examination. LUNGS: Clear to auscultation. No wheezing, rales or rhonchi. HEART: S1, S2. Sinus tachycardia. No murmurs, rubs or gallops noted. ABDOMEN: Soft, nontender, nondistended. Obese abdomen. No rebound, guarding or hepatosplenomegaly. EXTREMITIES: No cyanosis, clubbing or any pitting edema. LABORATORY DATA: White count 9.9, hemoglobin 12, hematocrit 37, platelet count 284, 67% neutrophils. Erythrocyte sedimentation rate of 30. C-reactive protein of 7.38. Beta HCG less than 5. Two sets of blood cultures are pending. 12/15/2018 Panorex orthopantogram: Lucency surrounding the root of the right second premolar tooth. No associated extension through the mandible is appreciated. Mandible osseous structures in addition appear relatively normal without obvious acute fossa. CT of the neck 12/15/2018 shows extensive right side facial swelling extending from approximately the level of the zygomatic arch to submandibular region with significant inflammation, stranding and phlegmonous changes, primarily overlying the mandible. There is partial opacification to the ethmoid and maxillary sinuses suggesting associated sinusitis. Airway is patent at the midline. Bilateral parotid, submandibular and submental glands are symmetric and normal. Mild right cervical and jugular chain adenopathy. Vasculature is symmetric and normal. Osseous structures are intact without obvious osseous pathology. ASSESSMENT AND PLAN: This is a 38-year-old female with two day history of worsening pain after cracking her tooth, found to have a right second premolar tooth lucency with surrounding right mandibular and facial cellulitis. Abscess could not be excluded. IMPRESSION: 1. Right facial cellulitis secondary to dental infection,buccal abscess. Right second premolar tooth to be evaluated by oromaxillary facial surgeon, Dr. Bhagat. Patient is nothing by mouth after midnight for tooth extraction on 12/16/2018. Patient is currently not having any airway issues. She is admitted to a medical/surgical floor, kept on intravenous (IV) fluids. Pureed diet for comfort. IV antibiotics with ampicillin, zobactam 3 grams IV q6h, Toradol 30 mg IV every 6 hours, chlorhexidine 15 mL for mouth care twice a day, oxycodone 5 mg every 6 hours if needed and Zofran for nausea. 2. Ethmoid and maxillary sinusitis. Currently on IV Unasyn. 3. Prior history of smoking. Tobacco cessation counseling has been provided for 10 minutes. 4. Social alcohol use. 5. Obesity. Body mass index (BMI) of 38.7 complicating care. Will monitor with continuous pulse oximetry in light of opioid use. Will be at risk of CO2 narcosis and hypercapnic respiratory failure. Will place a probable obstructive sleep apnea (ALEJANDRINA) protocol. [facility]
--- NOTE | 2018-12-17 13:42 | DS.PDOC ---
Discharge Summary General Date of Admission Dec 15, 2018 at 11:16 Date of Discharge 12/17/18 Discharge Summary PROCEDURES PERFORMED DURING STAY: DATE OF PROCEDURE: 12/16/2018 . Status post Right buccal space abscess and grossly decayed teeth number 29 and 30. PROCEDURE PERFORMED: Incision and drainage right buccal space abscess as well as extraction of teeth 29, 30. OMFS: DR. HARDEN DISCHARGE DIAGNOSES: Right buccal space abscess Decayed Teeth number 29 , 30 Right facial cellulitis Obesity bmi 38.7 COMPLICATIONS/CHIEF COMPLAINT: tooth pain, right facial swelling HISTORY OF PRESENT ILLNESS: A 38-year-old female presented to the emergency room with 2 day history of increasing pain and swelling of the right lower face. Patient cracked a tooth on the right mandible about two days ago, ignored it, then developed a sore around the left lower face, which worsened over the past 24 hours. Patient was seen at urgent care, was given penicillin, and at 6:00 p.m., patient had increasing swelling, redness and pain into the evening, prompting her to come this morning. She denies any shortness of breath or hoarseness of the voice this morning. She is unable to swallow and open her mouth fully due to significant pain, swelling and redness. Last meal was yesterday around lunchtime and has been unable to eat since then. Patient has been having some subjective fevers and chills at home. She had taken Aleve 375 mg about four times a day that she also takes for her neck and back pain. She had a similar episode when she had wisdom teeth out about a year ago when she developed inflammation, redness and swelling of the face due to infection. HOSPITAL COURSE: 12/15/2018 [facility] orthopantogram: Lucency surrounding the root of the right second premolar tooth. No associated extension through the mandible is appreciated. Mandible osseous structures in addition appear relatively normal without obvious acute fossa. CT of the neck 12/15/2018 shows extensive right side facial swelling extending from approximately the level of the zygomatic arch to submandibular region with significant inflammation, stranding and phlegmonous changes, primarily overlying the mandible. There is partial opacification to the ethmoid and maxillary sinuses suggesting associated sinusitis. Airway is patent at the midline. Bilateral parotid, submandibular and submental glands are symmetric and normal. Mild right cervical and jugular chain adenopathy. Vasculature is symmetric and normal. Osseous structures are intact without obvious osseous pathology. Right buccal abscess due to decayed teeth 28, 30 s/p I&D and teeth extraction by OMFS Dr. Harden. Patient is currently not having any airway issues. She was admitted to a medical/surgical floor, kept on intravenous (IV) fluids. Pureed diet for comfort. IV antibiotics with ampicillin, zobactam 3 grams IV q6h, Toradol 30 mg IV every 6 hours, chlorhexidine 15 mL for mouth care twice a day, oxycodone 5 mg every 6 hours if needed and Zofran for nausea. Ethmoid and maxillary sinusitis. Currently on IV Unasyn. Prior history of smoking. Tobacco cessation counseling has been provided for 10 minutes. Social alcohol use. Obesity. Body mass index (BMI) of 38.7 complicating care. monitored with continuous pulse oximetry in light of opioid use. at risk of CO2 narcosis and hypercapnic respiratory failure. obstructive sleep apnea (ALEJANDRINA) protocol. DISCHARGE MEDICATIONS: Please see below. ALLERGIES: Please see below. PHYSICAL EXAMINATION ON DISCHARGE: VITAL SIGNS: Please see below. HEENT: no respiratory distress or conversational dyspnea. significant reduction in the swelling in the right face from cheek to mandible. able to open her mouth fully. no erythema. still with cervical LAD. Lungs; CTAB AEBE no wheezing or rales Heart: S1S2 RRR Abd: S1S2 obese soft NT ND no HSM Ext: no edema, cyanosis, clubbing. LABORATORY DATA, IMAGING STUDIES, MICROBIOLOGY: PLS SEE BELOW DISPOSITION: 01 Home, Self-Care. DISCHARGE INSTRUCTIONS: FU APPT WITH DR. HARDEN WITHIN 5 DAYS, PCP WITHIN 7 DAYS DIET, ACTIVITY AND WOUND CARE PER DR. HARDEN DISCHARGE CONDITION: STABLE TIME SPENT ON DISCHARGE: 30 minutes. Vital Signs/I&Os Vital Signs Date Time Temp Pulse Resp B/P (MAP) Pulse Ox O2 Delivery O2 Flow Rate FiO2 12/17/18 08:30 18 12/17/18 06:00 98.9 68 112/58 (76) 98 12/16/18 21:08 Room Air 12/16/18 13:46 1.0 I&O- Last 24 Hours up to 6 AM 12/17/18 06:00 Intake Total 3375 ml Output Total 200 ml Balance 3175 ml Laboratory Data Labs 24H Laboratory Tests 2 12/17/18 05:17: Immature Granulocyte % (Auto) 0.4, White Blood Count 7.3, Red Blood Count 3.33L, Hemoglobin 9.7#L, Hematocrit 30.5L, Mean Corpuscular Volume 91.6, Mean Corpuscular Hemoglobin 29.1, Mean Corpuscular Hemoglobin Concent 31.8L, Red Cell Distribution Width 13.9, Platelet Count 256, Neutrophils (%) (Auto) 67.0H, Lymphocytes (%) (Auto) 25.1, Monocytes (%) (Auto) 7.3H, Eosinophils (%) (Auto) 0.1, Basophils (%) (Auto) 0.1, Neutrophils # (Auto) 4.9, Lymphocytes # (Auto) 1.8, Monocytes # (Auto) 0.5, Eosinophils # (Auto) 0.0, Basophils # (Auto) 0.0, Nucleated Red Blood Cells % (auto) 0.0, Anion Gap 5L, Glomerular Filtration Rate > 60.0, Blood Urea Nitrogen 7, Creatinine 0.40L, Sodium Level 143, Potassium Level 3.6, Chloride Level 110H, Carbon Dioxide Level 28, Calcium Level 8.1L CBC/BMP Laboratory Tests 12/17/18 05:17 Red Blood Count 3.33 L, Mean Corpuscular Volume 91.6, Mean Corpuscular Hemoglobin 29.1, Mean Corpuscular Hemoglobin Concent 31.8 L, Red Cell Dis tribution Width 13.9, Neutrophils (%) (Auto) 67.0 H, Lymphocytes (%) (Auto) 25.1, Monocytes (%) (Auto) 7.3 H, Eosinophils (%) (Auto) 0.1, Basophils (%) (Auto) 0.1, Neutrophils # (Auto) 4.9, Lymphocytes # (Auto) 1.8, Monocytes # (Auto) 0.5, Eosinophils # (Auto) 0.0, Basophils # (Auto) 0.0, Calcium Level 8.1 L Microbiology Microbiology 12/15/18 Blood Culture - Preliminary, Resulted No Growth after 48 hours. All Specime... 12/15/18 Blood Culture - Preliminary, Resulted No Growth after 48 hours. All Specime... Discharge Medications Scheduled Amoxicillin/Potassium Clav (Augmentin 875-125 Tablet) 1 Each Tablet, 875 MG PO BID Scheduled PRN Naproxen (Naproxen) 500 Mg Tablet, 500 MG PO BID PRN for PAIN, (Reported) Ondansetron (Ondansetron Odt) 4 Mg Tab.rapdis, 4 MG PO Q6-8HP PRN for nausea/vomiting Oxycodone HCl (Oxycodone HCl) 5 Mg Tablet, 5 MG PO Q6HP PRN for PAIN Sennosides/Docusate Sodium (Senokot-S Tablet) 1 Each Tablet, 1 TAB PO BIDP PRN for BOWEL CARE Allergies Coded Allergies: pear (Verified Allergy, Severe, throat swelling, 08/06/18) sertraline (Verified Adverse Reaction, Intermediate, gi dysfuntion,cramping, 08/06/18) metronidazole (Verified Adverse Reaction, Mild, nausea, 08/06/18) INGRID BIGGS MD Dec 17, 2018 13:37
== END 2018-12-17 11:25 | disposition home or self-care (01) | DRG 114 ==
LOC: M ED 07:51 → M ED INP 11:16 → M PED 13:05 → M MS5PR 12-16 09:58
PROVIDERS: ADMIT General Practice; ATTEND General Practice
PROC: 0CC Mouth and Throat, Extirpation (ICD-10-PCS; 2018-12-16)
PROC: 0CDXXZ1 Extraction of Lower Tooth, Multiple, External Approach (ICD-10-PCS; principal; 2018-12-16 08:00)
DX: K04.7 Periapical abscess without sinus (principal); L03.211 Cellulitis of face; E66.9 Obesity, unspecified; J32.2 Chronic ethmoidal sinusitis; J32.0 Chronic maxillary sinusitis; Z68.37 Body mass index [BMI] 37.0-37.9, adult; Z87.891 Personal history of nicotine dependence

== ENCOUNTER 2019-10-10 21:32 | Emergency (ER) | payer OTHER ==
[~2019-10-10] VITALS: Ht 147.3 cm; Wt 83.3 kg
[~2019-10-10 21:32] MED LIST changes: +CVS1CAP2 PO; +MCTOIL PO; +MULTCAP PO; +NAPR-885 PO; +ONDA4TAB6 PO; +OXYCO5TA PO; +PENI500T PO; +SENO8.6T10 PO
[2019-10-10] MEDS ORDERED: tylenol PM (21:43)
[2019-10-10] MEDS ORDERED: OMEP-218 PO (21:43)
[2019-10-10 22:29] LABS: BASO % 0.3 % (0.0-1.0); EOS % 0.1 % (0.0-3.0); HEMATOCRIT 39.2 % (36.0-47.0); HEMOGLOBIN 12.6 g/dl (12.0-15.5); LYMPH # 1.4 10^3/uL (1.5-5.0); MEAN CORPUSCULAR HEMOGLOBIN 28.3 pg (27.0-33.0); MEAN CORPUSCULAR HGB CONC 32.1 g/dl (32.0-36.5); MEAN CORPUSCULAR VOLUME 87.9 fl (80.0-96.0); MONO % 6.7 % (0.0-5.0); NEUTROPHILS # 12.6 10^3/uL (1.5-8.5); NEUTROPHILS % 83.6 % (36.0-66.0); PLATELET COUNT, AUTOMATED 324 10^3/uL (150-450); RED BLOOD COUNT 4.46 10^6/uL (4.00-5.40)
[2019-10-10 22:58] LABS: BILIRUBIN,DIRECT 0.1 MG/DL (0.0-0.2); BILIRUBIN,TOTAL 0.4 MG/DL (0.2-1.0); TOTAL PROTEIN 7.8 GM/DL (6.4-8.2)
[2019-10-10] MEDS ORDERED: ISOVUE-370 76% 100ML VIAL As Ordered ONE (23:08)
[2019-10-10] MEDS ORDERED: ONDANSETRON 4MG/2ML VIAL IV ONE (23:15)
[2019-10-10] MEDS ORDERED: KETOROLAC 30 MG/ML 1ML VIAL IV ONE (23:15)
[2019-10-10] MEDS ORDERED: NS 1,000 ML IV ONE (23:15)
--- NOTE | 2019-10-10 23:42 | REPVR ---
PROCEDURE INFORMATION: Exam: CT Abdomen And Pelvis With Contrast Exam date and time: 10/10/2019 11:02 PM Age: 39 years old Clinical indication: Fever; Abdominal pain; Flank; Right; Additional info: R flank pain, fever, elev wbc TECHNIQUE: Imaging protocol: Computed tomography of the abdomen and pelvis with intravenous contrast. Radiation optimization: All CT scans at this facility use at least one of these dose optimization techniques: automated exposure control; mA and/or kV adjustment per patient size (includes targeted exams where dose is matched to clinical indication); or iterative reconstruction. Contrast material: ISO; Contrast volume: 100 ml; Contrast route: INTRAVENOUS (IV); COMPARISON: US PELVIS NON-OB COMPLETE 04/22/2015 9:38 AM FINDINGS: Liver: Normal. No mass. Gallbladder and bile ducts: Normal. No calcified stones. No ductal dilation. Pancreas: Normal. No ductal dilation. Spleen: Normal. No splenomegaly. Adrenals: Normal. No mass. Kidneys and ureters: Normal. No hydronephrosis. Stomach and bowel: Small sliding-type gastric hiatal hernia. Diffuse thickening of the right colon. No abnormal bowel dilatation. No abnormal bowel dilatation. Appendix: Appendix is normal. Intraperitoneal space: Unremarkable. No free air. No significant fluid collection. Vasculature: Unremarkable. No abdominal aortic aneurysm. Lymph nodes: Unremarkable. No enlarged lymph nodes. Bladder: Unremarkable as visualized. Reproductive: Uterus is normal. Bones/joints: Severe levoscoliosis of the lumbar spine. Dextroscoliosis of the thoracic spine. No acute fracture. Soft tissues: Small umbilical hernia containing fat. There is no evidence of strangulation. IMPRESSION: 1. Diffuse thickening of the right colon. Consistent with infectious versus inflammatory colitis. Findings are doubtful for ischemic colitis. 2. Small gastric hiatal hernia. 3. Additional findings as described. Electronically signed by: Sabine Fraire On 10/10/2019 23:41:33 PM
[2019-10-11 00:18] VITALS: BP 117/57
[2019-10-11] MEDS ORDERED: FLAG500T PO (00:25)
[2019-10-11] MEDS ORDERED: ONDA4TAB6 PO (00:25)
[2019-10-11] MEDS ORDERED: CIPR-249 PO (00:25)
[2019-10-11] MEDS ORDERED: DICY10CA13 PO (00:28)
[2019-10-11] MEDS ORDERED: CIPROFLOXACIN 500MG TABLET PO ONE (00:30)
[2019-10-11] MEDS ORDERED: ONDANSETRON 4 MG ORAL DISINTEGRATING TAB PO ONE (00:30)
[2019-10-11] MEDS ORDERED: metroNIDAZOLE (FLAGYL) 500MG TABLET PO ONE (00:30)
[2019-10-11] MEDS ORDERED: DICYCLOMINE 10 MG CAP PO ONE (00:30)
--- NOTE | 2019-10-14 09:56 | ED PDOC ---
Post-Departure Follow-Up ananth miner faxed formal report of ct abd/p for fu sybilg Jose Mckeon MD Oct 14, 2019 09:56
== END 2019-10-11 00:38 | disposition home or self-care (01) ==
LOC: M ED 21:32
DX: K52.9 Noninfective gastroenteritis and colitis, unspecified (principal); F99 Mental disorder, not otherwise specified; Z88.0 Allergy status to penicillin; Z88.1 Allergy status to other antibiotic agents; Z88.8 Allergy status to other drugs, medicaments and biological substances; Z91.018 Allergy to other foods; Z79.899 Other long term (current) drug therapy
CPT/HCPCS: 36415; 74177; 80047; 80076; 81001; 83690; 84702; 85025; 96361; 96374; 96375; 99284; J1885; J2405; Q0162; Q9967

== ENCOUNTER 2020-03-16 23:51 | Emergency (ER) | payer MEDICAID, OTHER ==
[~2020-03-16] VITALS: Ht 149.9 cm; Wt 83.3 kg
[~2020-03-16 23:51] MED LIST changes: +DICY10CA13 PO; +FLAG500T PO; +OMEP-218 PO; +tylenol PM
[2020-03-16] MEDS ORDERED: OMEP-221 (23:58)
[2020-03-16] MEDS ORDERED: GABA-1171 (23:58)
[2020-03-17] MEDS ORDERED: methocarbamoL 750 MG TAB PO ONE (01:15)
[2020-03-17] MEDS ORDERED: NORCO, ANEXSIA 5/325MG TABLET (HYDROcodone/ACETAMINOPHEN) PO ONE (01:15)
[2020-03-17 02:30] VITALS: BP 131/78
[2020-03-17] MEDS ORDERED: NORCO 5/325MG TABLET (BULK FOR ED) PO ONE (02:30)
== END 2020-03-17 02:32 | disposition home or self-care (01) ==
LOC: M ED 23:51
DX: M54.6 Pain in thoracic spine (principal); G89.29 Other chronic pain; M41.9 Scoliosis, unspecified; R35.1 Nocturia; Z88.0 Allergy status to penicillin; Z88.1 Allergy status to other antibiotic agents; Z88.8 Allergy status to other drugs, medicaments and biological substances; Z91.018 Allergy to other foods; Z79.899 Other long term (current) drug therapy

== ENCOUNTER 2020-06-22 17:29 | Emergency (ER) | payer OTHER, MEDICAID ==
[~2020-06-22] VITALS: Ht 147.3 cm; Wt 84.3 kg
[~2020-06-22 17:29] MED LIST changes: +ESCI10TA16 PO; -ESCI10TA2 PO; +GABA-1171; +OMEP-221
[2020-06-22] MEDS ORDERED: diphenhydrAMINE 50MG/ML VIAL (J1200) IV STA (18:23)
[2020-06-22] MEDS ORDERED: NS 1,000 ML IV ONE (18:25)
[2020-06-22] MEDS ORDERED: METOCLOPRAMIDE INJ 10MG/2ML VIAL (J2765 PER 1) IV ONE (18:25)
[2020-06-22] MEDS ORDERED: KETOROLAC 30 MG/ML 1ML VIAL IV ONE (18:25)
[2020-06-22 19:06] LABS: BASO % 0.3 % (0.0-1.0); EOS # 0.1 10^3/uL (0.0-0.5); EOS % 1.2 % (0.0-3.0); HEMOGLOBIN 12.8 g/dl (12.0-15.5); LYMPH # 3.3 10^3/uL (1.5-5.0); LYMPH % 28.5 % (24.0-44.0); MEAN CORPUSCULAR HEMOGLOBIN 28.4 pg (27.0-33.0); MEAN CORPUSCULAR VOLUME 88.7 fl (80.0-96.0); MONO # 0.7 10^3/uL (0.0-0.8); MONO % 6.2 % (2.0-8.0); NEUTROPHILS # 7.3 10^3/uL (1.5-8.5); NEUTROPHILS % 63.4 % (36.0-66.0); PLATELET COUNT, AUTOMATED 348 10^3/uL (150-450); RED BLOOD COUNT 4.51 10^6/uL (4.00-5.40); WHITE BLOOD COUNT 11.6 10^3/uL (4.0-10.0)
--- NOTE | 2020-06-22 19:45 | REPVR ---
PROCEDURE INFORMATION: Exam: CT Head Without Contrast Exam date and time: 06/22/2020 7:19 PM Age: 39 years old Clinical indication: Pain; Headache; Additional info: SORIA x 6 days, severe today, no HX SORIA TECHNIQUE: Imaging protocol: Computed tomography of the head without contrast. Radiation optimization: All CT scans at this facility use at least one of these dose optimization techniques: automated exposure control; mA and/or kV adjustment per patient size (includes targeted exams where dose is matched to clinical indication); or iterative reconstruction. COMPARISON: CT Head without contrast 03/04/2017 2:24 PM FINDINGS: Brain: No intracranial mass, mass effect or midline shift. No acute intracranial hemorrhage. No CT evidence of acute cortical infarct. Ventricles, cisterns, and sulci are normal in size for age. Bones/joints: No calvarial fracture or destructive process. Paranasal sinuses: Imaged paranasal sinuses are normally aerated. Mastoid air cells: Mastoid air cells and middle ear structures are normally aerated. Orbital cavity: Imaged orbits are unremarkable. Soft tissues: No focal extracranial soft tissue swelling. IMPRESSION: No acute or concerning focal intracranial abnormality. Electronically signed by: Sterling Witt On 06/22/2020 19:45:10 PM
[2020-06-22] MEDS ORDERED: dexameTHASONE 20MG/5ML VIAL (J1100 PER 1MG) IV ONE (20:10)
[2020-06-22] MEDS ORDERED: IBUP-1022 PO (21:33)
[2020-06-22] MEDS ORDERED: REGL10TA6 PO (21:33)
[2020-06-22] MEDS ORDERED: PRED20TA PO (21:33)
[2020-06-22 21:39] VITALS: BP 108/64
== END 2020-06-22 21:50 | disposition home or self-care (01) ==
LOC: M ED 17:29
DX: R51.9 Headache, unspecified (principal); G89.29 Other chronic pain; Z79.899 Other long term (current) drug therapy; Z88.0 Allergy status to penicillin; Z88.8 Allergy status to other drugs, medicaments and biological substances; Z91.018 Allergy to other foods
CPT/HCPCS: 70450; 80047; 83735; 84702; 85025; 96361; 96374; 96375; 99284; J1100; J1200; J1885; J2765